=== PATIENT | female | born 1970 | race Hispanic/Latino ===

== ENCOUNTER 2017-10-29 17:39 | Emergency (ER) | payer MEDICAID ==
[2017-10-29 18:31] LABS: APPEARANCE,URINE Clear (CLEAR); BILIRUBIN,URINE Negative (NEGATIVE); COLOR,URINE Yellow (YELLOW); GLUCOSE, URINE (UA) Negative (NEGATIVE); KETONES,URINE >=80 mg/dL (NEGATIVE); LEUKOCYTE ESTERASE ,URINE Negative (NEGATIVE); NITRATE,URINE Negative (NEGATIVE); OCCULT BLOOD,URINE Negative (NEGATIVE); PROTEIN,URINE Trace (NEGATIVE)
[2017-10-29 18:39] LABS: HCG,QUAL RESULT NEGATIVE (NEGATIVE)
[2017-10-29] MEDS ORDERED: ONDANSETRON HCL 4 MG/2 ML VIAL ONE (18:42)
[2017-10-29 18:47] LABS: BASOPHILS % (AUTO) 0.5 % (0.0-5.0); EOSINOPHILS % (AUTO) 2.2 % (0.0-8.0); HEMATOCRIT 41.2 % (36-48); LYMPHOCYTES % (AUTO) 26.2 % (21.0-51.0); MEAN CORPUSCULAR HEMOGLOBIN 31.4 pg (27.0-33.0); MEAN CORPUSCULAR HGB CONC 34.1 g/dL (32.0-36.0); MEAN CORPUSCULAR VOLUME 92.1 fL (79-99); MONOCYTES % (AUTO) 8.1 % (3.0-13.0); PLATELET COUNT (AUTO) 192 K/uL (130-400); RED BLOOD CELL COUNT(AUTO) 4.48 MIL/uL (4.00-5.50); RED CELL DISTRIBUTION WIDTH 13.7 % (11.0-15.5); WHITE BLOOD COUNT (AUTO) 9.1 K/uL (4.8-10.8)
[2017-10-29 18:55] LABS: BACTERIA,URINE Few /HPF (None Seen); MUCUS,URINE Few LPF (None Seen); RBC,URINE 0-1 /HPF (0-1); SQUAMOUS EPITHELIAL CELL,UR Few /HPF (0-2); WBC,URINE 0-1 /HPF (0-1)
[2017-10-29 18:56] LABS: CREATININE 0.7 mg/dL (0.5-1.5); POTASSIUM 3.7 mmol/L (3.5-5.1)
[2017-10-29 19:00] LABS: ALBUMIN 3.5 g/dL (3.5-5.0); BILIRUBIN,TOTAL 0.4 mg/dL (0.2-1.0); TOTAL PROTEIN, SERUM 7.6 g/dL (6.0-8.3)
== END 2017-10-29 20:07 | disposition home or self-care (01) ==
LOC: EDH 17:39
DX: R42 Dizziness and giddiness (principal); K21.9 Gastro-esophageal reflux disease without esophagitis; M32.9 Systemic lupus erythematosus, unspecified; F41.9 Anxiety disorder, unspecified; J45.909 Unspecified asthma, uncomplicated; Z88.6 Allergy status to analgesic agent; Z88.8 Allergy status to other drugs, medicaments and biological substances
CPT/HCPCS: 36415; 80053; 81001; 81025; 83690; 85025; 96374; 99284; J2405

== ENCOUNTER → 2018-05-06 | Outpatient (CLI) | payer MEDICAID ==
[~2018-05-06] MED LIST: ALPR0.5T PO; FAMO-136 PO; HYDR-4068 PO; HYDR200T82 PO; METO100T14 PO; METO50TA18 PO; MONT10TA21 PO; PROM25TA7 PO; SERT100T PO
== END | disposition home or self-care (01) ==
LOC: OIH 14:03
PROVIDERS: ATTEND Internal Medicine
DX: M32.13 Lung involvement in systemic lupus erythematosus (principal); R07.89 Other chest pain; M24.812 Other specific joint derangements of left shoulder, not elsewhere classified
CPT/HCPCS: 71046

== ENCOUNTER → 2018-06-04 | Outpatient (CLI) | payer MEDICAID | END | disposition home or self-care (01) | LOC: OIH 10:52 | PROVIDERS: ATTEND Internal Medicine | DX: R09.1 Pleurisy (principal); M47.815 Spondylosis without myelopathy or radiculopathy, thoracolumbar region | CPT/HCPCS: 71046 ==

== ENCOUNTER → 2022-03-19 | Outpatient (CLI) | payer OTHER | END | disposition home or self-care (01) | LOC: RAH 09:18 | PROVIDERS: ATTEND Internal Medicine Gastroenterology | DX: K21.9 Gastro-esophageal reflux disease without esophagitis (principal); R13.10 Dysphagia, unspecified; K44.9 Diaphragmatic hernia without obstruction or gangrene | CPT/HCPCS: 74240 ==

== ENCOUNTER 2024-03-31 05:48 | Observation (INO) | payer OTHER ==
[2024-03-29 11:12] VITALS: BP 109/63; PULSE 73; RESP 18; TEMP 97.2
[2024-03-29 11:19] LABS: BASOPHILS # (AUTO) 0.04 K/uL (0.00-0.20); BASOPHILS % (AUTO) 0.4 % (0.0-5.0); EOSINOPHILS # (AUTO) 0.03 K/uL (0.00-0.70); EOSINOPHILS % (AUTO) 0.3 % (0.0-8.0); HEMATOCRIT 34.8 % (36-48); IMMATURE GRANULOCYTE ABSOLUTE 0.41 K/uL (0-1); LYMPHOCYTES # (AUTO) 2.1 K/uL (1.0-4.8); LYMPHOCYTES % (AUTO) 21.2 % (21.0-51.0); MEAN CORPUSCULAR HEMOGLOBIN 29.9 pg (27.0-33.0); MEAN CORPUSCULAR VOLUME 96.4 fL (79-99); NEUTROPHILS # (AUTO) 6.3 K/uL (1.8-7.7); NEUTROPHILS % (AUTO) 63.9 % (40.0-77.0); PLATELET COUNT (AUTO) 280 K/uL (130-400); RED BLOOD CELL COUNT(AUTO) 3.61 MIL/uL (4.00-5.50); RED CELL DISTRIBUTION WIDTH 13.4 % (11.0-15.5); WHITE BLOOD COUNT (AUTO) 9.8 K/uL (4.8-10.8)
[2024-03-29 11:24] LABS: CREATININE 0.8 mg/dL (0.5-1.0); POTASSIUM 4.1 mmol/L (3.5-5.1)
[2024-03-29 11:26] LABS: APPEARANCE,URINE CLEAR (CLEAR); BILIRUBIN,URINE NEGATIVE (NEGATIVE); COLOR,URINE LIGHT-YELLOW (YELLOW); GLUCOSE, URINE (UA) NEGATIVE (NEGATIVE); KETONES,URINE NEGATIVE (NEGATIVE); LEUKOCYTE ESTERASE ,URINE 75 Leu/uL (NEGATIVE); NITRATE,URINE NEGATIVE (NEGATIVE); OCCULT BLOOD,URINE NEGATIVE (NEGATIVE); PROTEIN,URINE 30 mg/dL (NEGATIVE); UROBILINOGEN,URINE 0.2 mg/dL (0.2-1.0)
[2024-03-29 11:37] LABS: ADD UA MICROSCOPIC YES
[2024-03-29 11:37] LABS: INR 0.98 (0.85-1.15); PROTHROMBIN TIME 10.6 SEC (9.6-11.6)
[2024-03-29 11:38] LABS: PARTIAL THROMBOPLASTIN TIME 24.2 SEC (26.3-35.5)
[2024-03-29 11:40] LABS: BACTERIA,URINE RARE /HPF (None Seen); MUCUS,URINE RARE LPF (None Seen); RBC,URINE 0-1 /HPF (0-1); SQUAMOUS EPITHELIAL CELL,UR RARE /HPF (0-2)
[2024-03-29 11:43] LABS: B-TYPE NATRIURETIC PEPTIDE 37 pg/mL (0-100)
[~2024-03-31] VITALS: Ht 157.5 cm; Wt 87.0 kg
[2024-03-31] VITALS (11 sets, daily range): BP systolic 89–132; BP diastolic 54–78; PULSE 69–83; RESP 10–18; TEMP 97.3–98.7; O2SAT 95
[~2024-03-31 05:48] MED LIST changes: +ASPI-1443 PO; +BACL10TA PO; +BUTA-256 PO; +CARB100C9 PO; +CARB200C7 PO; +CETI10TA87 PO; +DEGLUDEC SQ; +EVOL140S2 SQ; -FAMO-136 PO; +FAMO40TA7 PO; +FLUT1BLS3 IH; +GEMF600T89 PO; -HYDR200T82 PO; +LEVO-70 PO; +LOSA100T59 PO; +METF-444 PO; +METO-391 PO; -METO100T14 PO; -METO50TA18 PO; +MONT-46 PO; -MONT10TA21 PO; +PRED10TA3 PO; +PRED20TA3 PO; -PROM25TA7 PO; +SEMA2PEN SQ; -SERT100T PO; +TOPI-97 PO; +TOPI25TA48 PO; +sertraline PO
[2024-03-31] MEDS: 0.9%NACL 1000ML 1,000 ML IV ONE (06:50)
[2024-03-31] MEDS ORDERED: IODIXANOL 320 MG/ML 100 ML VIAL ONE ×2 (07:27→10:04)
[2024-03-31] MEDS ORDERED: MEPERIDINE-PF 25 MG/ML SYG ONE ×4 (07:27→10:09)
[2024-03-31] MEDS ORDERED: LIDOCAINE HCL 400MG/20ML VIAL ONE (07:27)
[2024-03-31] MEDS ORDERED: MIDAZOLAM HCL 1 MG/ML 2ML VIAL ONE ×4 (07:27→10:09)
[2024-03-31] MEDS ORDERED: NITROGLYCERIN 50MG VIAL ONE (07:28)
[2024-03-31] MEDS ORDERED: HEParin 10,000 UNIT/10ML (1,000 UNIT/ML) VIAL ONE ×2 (07:28→09:53)
[2024-03-31] MEDS ORDERED: HEParin-NS 1,000 UNIT/500 ML 1,000 ML IV ONE (07:28)
[2024-03-31] MEDS ORDERED: niCARDIpine 25MG INJ IV ONE (09:01)
[2024-03-31] MEDS ORDERED: HEParin-NS 1,000 UNIT/500 ML 500 ML IV ONE (09:18)
[2024-03-31] MEDS ORDERED: LAbetaLOL 20MG VIAL ONE (10:45)
[2024-03-31] MEDS ORDERED: DEXTROSE 50%-WATER 50 ML DISP.SYRIN IV PRN (11:00)
[2024-03-31] MEDS ORDERED: GLUCAGON 1MG KIT 1 MG ML IM PRN (11:00)
[2024-03-31] MEDS: 0.9%NACL 1000ML 1,000 ML IV SCH (11:52)
[2024-03-31] MEDS ORDERED: BUTALB/ACETAMINOPHEN/CAFFEINE 1 EACH TABLET PO PRN (15:00)
[2024-03-31] MEDS ORDERED: BACLOFEN 10 MG TABLET PO PRN (15:00)
[2024-03-31] MEDS: ALPRAZolam 0.5 MG TABLET PO PRN (17:39)
[2024-03-31] MEDS: HYDROcodone/acetaMINOPHEN 10/325 MG TAB PO PRN (17:39)
[2024-03-31] MEDS: INSULIN GLARgine 100 UNITS/ML 10 ML VIAL SQ SCH (21:00)
[2024-03-31] MEDS ORDERED: NON-FORMULARY MEDICATION 1 EACH (Topiramate 50 MG) PO SCH (21:00)
[2024-03-31] MEDS: Fluticasone/Umeclidin/Vilanter (Trelegy Ellipta 100-62.5-25MCG) IH SCH (21:00)
[2024-03-31] MEDS: metFORmin HCL 500 MG TABLET PO SCH (21:00)
[2024-03-31] MEDS: ASPIRIN 81 MG EC TAB PO SCH (21:00)
[2024-03-31] MEDS: LoSARTan 100 MG TABLET PO SCH (21:13)
[2024-03-31] MEDS: ceTIRIzine HCL 5 MG TABLET PO SCH (21:13)
[2024-03-31] MEDS: FAMOTIDINE 20MG TAB PO SCH (21:13)
[2024-03-31] MEDS: topIRAMate 25 MG TABLET PO SCH (21:14)
[2024-03-31] MEDS: SERTraline HCL 50 MG TABLET PO SCH (21:14)
[2024-03-31] MEDS: gemFIBROzil 600 MG TABLET PO SCH (21:14)
[2024-03-31] MEDS: predniSONE 10 MG TABLET PO SCH (21:14)
[2024-03-31] MEDS: carBAMazepine 200 MG TABLET PO SCH (21:14)
[2024-03-31] MEDS: hydroMORPHone 1 MG INJ IVP ONE (21:45)
[2024-03-31] MEDS: monteLUKAST sodIUM 10 MG TAB PO SCH (22:07)
[2024-04-01 00:27] VITALS: BP 131/83; PULSE 85; RESP 18; TEMP 98.6
[2024-04-01 04:24] VITALS: BP 124/74; PULSE 81; RESP 18; TEMP 97.9
[2024-04-01 07:00] VITALS: BP 128/78; PULSE 79; RESP 20; TEMP 98.7
[2024-04-01] MEDS: metOPROLol sucCINATE 50 MG TAB.SR.24H PO SCH (09:16)
[2024-04-01] MEDS: predniSONE 20 MG TABLET PO SCH (09:16)
[2024-04-01] MEDS: carBAMazepine 200 MG TABLET PO SCH (09:17)
[2024-04-01] MEDS: levoFLOXacin 500 MG TABLET PO SCH (09:17)
[2024-04-01] MEDS ORDERED: HYDR200T75 PO (09:19)
[2024-04-01 09:20] VITALS: O2SAT 96
[2024-04-01 11:00] VITALS: BP 132/84; PULSE 85; RESP 20; TEMP 98
[2024-04-01 11:19] LABS: MEAN CORPUSCULAR HEMOGLOBIN 30.8 pg (27.0-33.0); MEAN CORPUSCULAR HGB CONC 32.5 g/dL (32.0-36.0); MEAN CORPUSCULAR VOLUME 94.7 fL (79-99); RED BLOOD CELL COUNT(AUTO) 3.38 MIL/uL (4.00-5.50); RED CELL DISTRIBUTION WIDTH 13.4 % (11.0-15.5); WHITE BLOOD COUNT (AUTO) 11.4 K/uL (4.8-10.8)
[2024-04-01 11:30] LABS: ALBUMIN 3.1 g/dL (3.5-5.0); BILIRUBIN,TOTAL 0.2 mg/dL (0.2-1.0); CREATININE 0.7 mg/dL (0.5-1.0); MAGNESIUM 1.8 mg/dL (1.80-2.40); POTASSIUM 3.8 mmol/L (3.5-5.1); TOTAL PROTEIN, SERUM 6.2 g/dL (6.0-8.3)
[2024-04-01] MEDS ORDERED: CLOP-31 PO (13:18)
[2024-04-07] MEDS ORDERED: Semaglutide (Ozempic) 2 MG SQ SCH (09:00)
[2024-04-14] MEDS ORDERED: EVOLOCUMAB SQ SCH (09:00)
== END 2024-04-01 14:16 | disposition home or self-care (01) ==
LOC: DAH 05:48 → DAHIP 05:49 → 2AH 14:30
PROVIDERS: ADMIT Internal Medicine; ATTEND Internal Medicine
DX: E11.51 Type 2 diabetes mellitus with diabetic peripheral angiopathy without gangrene (principal); I73.9 Peripheral vascular disease, unspecified; I31.39 Other pericardial effusion (noninflammatory); M32.9 Systemic lupus erythematosus, unspecified; E78.5 Hyperlipidemia, unspecified; I47.10 Supraventricular tachycardia, unspecified; G47.30 Sleep apnea, unspecified; E11.621 Type 2 diabetes mellitus with foot ulcer; L97.519 Non-pressure chronic ulcer of other part of right foot with unspecified severity; J45.909 Unspecified asthma, uncomplicated; K31.84 Gastroparesis; E11.43 Type 2 diabetes mellitus with diabetic autonomic (poly)neuropathy; I10 Essential (primary) hypertension; Z79.82 Long term (current) use of aspirin; Z79.02 Long term (current) use of antithrombotics/antiplatelets; Z79.899 Other long term (current) drug therapy; Z88.6 Allergy status to analgesic agent; Z88.5 Allergy status to narcotic agent; Z91.010 Allergy to peanuts; Z88.8 Allergy status to other drugs, medicaments and biological substances
CPT/HCPCS: 80048; 83880; 85025; 85610; 85730; 87086; 81001; 36415 ×3; 71045; 93005; 36246; 75625; 75710; 96374; 96361; 84703; 85347 ×3; 82948 ×6; 83735; 80053; 85027; 73718; 93923; C1887 ×3; C1894 ×2; C1769 ×14; C1760; C1893; G0378 ×27; J3490 ×4; J1171; J7030; J1644 ×4; J2250 ×4; J2175 ×4; J7512; Q9967 ×2; A4215; A4223 ×3; A4554; A4335; A4222; A4221; A4663; A4216; A4606; A4600; 75716; 75774; 96360; 99156; 99157